=== PATIENT | male | born 1945 | race Caucasian/White ===

== ENCOUNTER → 2016-12-19 | Outpatient (REF) | payer MEDICARE ==
[~2016-12-19] MED LIST: ALEV220T26 PO; ASPI1TAB PO; ASPI81TA21 PO; BAYE325T12 PO; CARV3.12 PO; CARV6.25 PO; CIAL5TAB PO; CLOP75TA2 PO; MAGO400T PO; OMEP40CA2 PO; PERC5TAB6 PO; PLAV75TA38 PO; PRIL1CAP PO; SUCR1TA PO; TUMS500C PO; TYLE1TAB5 PO; ZOCO10TA PO; ZOLP5TAB PO
== END ==
LOC: M LABDRWAD 12:04
PROVIDERS: ATTEND Urology
DX: C61 Malignant neoplasm of prostate (principal)

== ENCOUNTER → 2017-01-15 | Outpatient (REF) | payer MEDICARE ==
[~2017-01-15] MED LIST changes: +PERC5TAB12 PO; -PERC5TAB6 PO; +PLAV1TAB2 PO; -PLAV75TA38 PO
[2017-01-15 12:35] LABS: MEAN CORPUSCULAR HEMOGLOBIN 28.4 pg (27.0-33.0); MEAN CORPUSCULAR HGB CONC 32.8 g/dl (32.0-36.5); MEAN CORPUSCULAR VOLUME 86.7 fl (80.0-96.0); RED CELL DISTRIBUTION WIDTH 14.8 % (11.5-14.5); WHITE BLOOD COUNT 3.3 K/mm3 (4.0-10.0)
[2017-01-15 12:53] LABS: ALBUMIN 3.5 GM/DL (3.2-5.2); ALBUMIN/GLOBULIN RATIO 1.06 (1.00-1.93); ALKALINE PHOSPHATASE 104 U/L (45-117); ALT/SGPT 18 U/L (12-78); ANION GAP 6 MEQ/L (8-16); AST/SGOT 16 U/L (15-37); BILIRUBIN,TOTAL 0.3 MG/DL (0.2-1.0); BLOOD UREA NITROGEN 24 MG/DL (7-18); CALCIUM LEVEL 8.4 MG/DL (8.8-10.2); CARBON DIOXIDE LEVEL 28 MEQ/L (21-32); CHLORIDE LEVEL 109 MEQ/L (98-107); CHOLESTEROL LEVEL 120 MG/DL (<200); CREATININE FOR GFR 0.97 MG/DL (0.70-1.30); GLOMERULAR FILTRATION RATE > 60.0 (>42); GLUCOSE, FASTING 102 MG/DL (83-110); POTASSIUM SERUM 4.1 MEQ/L (3.5-5.1); SODIUM LEVEL 143 MEQ/L (136-145); TOTAL PROTEIN 6.8 GM/DL (6.4-8.2); TRIGLYCERIDES LEVEL 90 MG/DL (<150)
== END ==
LOC: M SFHCPLAZ 08:35
PROVIDERS: ATTEND Family Medicine
DX: K22.70 Barrett's esophagus without dysplasia (principal); I48.0 Paroxysmal atrial fibrillation; E74.9 Disorder of carbohydrate metabolism, unspecified; E78.2 Mixed hyperlipidemia; C61 Malignant neoplasm of prostate; Z79.899 Other long term (current) drug therapy

== ENCOUNTER → 2017-04-16 | Outpatient (REF) | payer MEDICARE | LOC: M LAB REF 10:20 | PROVIDERS: ATTEND Radiology Therapeutic Radiology | DX: C61 Malignant neoplasm of prostate (principal) ==

== ENCOUNTER → 2017-12-16 | Outpatient (REF) | payer MEDICARE ==
[2017-12-16 12:27] LABS: CREATININE FOR GFR 1.08 MG/DL (0.70-1.30); GLOMERULAR FILTRATION RATE > 60.0 (>42)
[2017-12-16 12:27] LABS: BLOOD UREA NITROGEN 22 MG/DL (7-18)
== END ==
LOC: M LABDRAW1 11:42
DX: M25.511 Pain in right shoulder (principal)
CPT/HCPCS: 82565

== ENCOUNTER → 2017-12-22 | Outpatient (REF) | payer MEDICARE ==
[2017-12-23 13:02] LABS: HEMATOCRIT 37.5 % (42.0-52.0); HEMOGLOBIN 11.9 g/dl (13.5-17.5); MEAN CORPUSCULAR HGB CONC 31.7 g/dl (32.0-36.5); MEAN CORPUSCULAR VOLUME 85.2 fl (80.0-96.0); PLATELET COUNT, AUTOMATED 214 10^3/uL (150-450); RED CELL DISTRIBUTION WIDTH 15.1 % (11.5-14.5); WHITE BLOOD COUNT 3.6 10^3/uL (4.0-10.0)
[2017-12-23 13:13] LABS: ALBUMIN 3.5 GM/DL (3.2-5.2); ALBUMIN/GLOBULIN RATIO 1.03 (1.00-1.93); ALKALINE PHOSPHATASE 91 U/L (45-117); ALT/SGPT 19 U/L (12-78); ANION GAP 11 MEQ/L (8-16); AST/SGOT 17 U/L (7-37); BILIRUBIN,TOTAL 0.4 MG/DL (0.2-1.0); BLOOD UREA NITROGEN 20 MG/DL (7-18); CALCIUM LEVEL 8.2 MG/DL (8.8-10.2); CARBON DIOXIDE LEVEL 23 MEQ/L (21-32); CHLORIDE LEVEL 107 MEQ/L (98-107); CHOLESTEROL LEVEL 109 MG/DL (<200); CHOLESTEROL RISK RATIO 3.892 (<5); CREATININE FOR GFR 1.08 MG/DL (0.70-1.30); GLOMERULAR FILTRATION RATE > 60.0 (>42); GLUCOSE, FASTING 105 MG/DL (70-100); HDL CHOLESTEROL 28 MG/DL (>40); LDL CHOLESTEROL 66.6 MG/DL (<100); NON-HDL-C 81 MG/DL; POTASSIUM SERUM 4.3 MEQ/L (3.5-5.1); PROSTATIC SPECIFIC AG MONITOR < 0.01 NG/ML (< 4.0); SODIUM LEVEL 141 MEQ/L (136-145); TOTAL PROTEIN 6.9 GM/DL (6.4-8.2); TRIGLYCERIDES LEVEL 72 MG/DL (<150)
== END ==
LOC: M SFHCADAM 09:29
DX: K22.70 Barrett's esophagus without dysplasia (principal); E78.2 Mixed hyperlipidemia; C61 Malignant neoplasm of prostate
CPT/HCPCS: 80053

== ENCOUNTER → 2017-12-30 | Outpatient (REF) | payer MEDICARE ==
[2017-12-30 12:57] LABS: BASO % 0.8 % (0.0-1.0); EOS # 0.1 10^3/uL (0.0-0.50); EOS % 3.8 % (0.0-3.0); HEMATOCRIT 39.1 % (42.0-52.0); HEMOGLOBIN 12.2 g/dl (13.5-17.5); LYMPH % 27.2 % (24.0-44.0); MEAN CORPUSCULAR HEMOGLOBIN 26.6 pg (27.0-33.0); MEAN CORPUSCULAR HGB CONC 31.2 g/dl (32.0-36.5); MEAN CORPUSCULAR VOLUME 85.4 fl (80.0-96.0); MONO # 0.3 10^3/uL (0.0-0.8); MONO % 7.5 % (0.0-5.0); NEUTROPHILS # 2.3 10^3/uL (1.8-7.7); NEUTROPHILS % 60.7 % (36.0-66.0); PLATELET COUNT, AUTOMATED 215 10^3/uL (150-450); RED BLOOD COUNT 4.58 10^6/uL (4.30-6.10); RED CELL DISTRIBUTION WIDTH 15.5 % (11.5-14.5); RETIC HEMOGLOBIN EQUIVALENT 30.3 pg (24-36); RETICULOCYTE # 41.2 10^9/L (17-77); RETICULOCYTE % 0.9 % (0.5-1.5); WHITE BLOOD COUNT 3.7 10^3/uL (4.0-10.0)
[2017-12-30 13:29] LABS: VITAMIN B12 LEVEL 297 PG/ML (247-911)
[2017-12-30 13:30] LABS: FOLATE 7.4 NG/ML (>5.4)
[2017-12-30 13:37] LABS: FERRITIN 9 NG/ML (26-388); FREE T4 0.98 NG/DL (0.76-1.46); IRON (FE) 53 UG/DL (65-175); PERCENT SATURATION 13.7 % (19.7-50.0); TOTAL IRON BINDING CAPACITY 386 UG/DL (250-450)
[2017-12-30 13:37] LABS: MAGNESIUM LEVEL 2.2 MG/DL (1.8-2.4)
[2017-12-30 13:38] LABS: ESTIMATED AVERAGE GLUCOSE 137 MG/DL (60-110); HEMOGLOBIN A1c 6.4 %
[2018-01-01 00:10] LABS: FREE LAMBDA LIGHT CHAINS SERUM 15.1 mg/L (5.7-26.3); KAPPA/LAMBDA RATIO SERUM 1.06 (0.26-1.65)
== END ==
LOC: M SFHCADAM 09:16
DX: R53.83 Other fatigue (principal); D64.9 Anemia, unspecified; E74.9 Disorder of carbohydrate metabolism, unspecified; I25.10 Atherosclerotic heart disease of native coronary artery without angina pectoris; C61 Malignant neoplasm of prostate; I48.0 Paroxysmal atrial fibrillation; E78.2 Mixed hyperlipidemia; K22.70 Barrett's esophagus without dysplasia
CPT/HCPCS: 82746

== ENCOUNTER 2018-02-08 08:23 | Day surgery (SDC) | payer MEDICARE ==
[2018-02-08] MEDS: NS 1,000 ML IV (08:56)
[2018-02-08] MEDS ORDERED: PROPOFOL 500 MG/50 ML VIAL As Ordered (10:07)
[2018-02-08] MEDS ORDERED: LIDOCAINE 2% INJ 100 MG/5 ML SDV (FOR ANES.) As Ordered (10:07)
== END 2018-02-08 10:57 | disposition home or self-care (01) ==
LOC: M OPP 08:23
DX: D50.9 Iron deficiency anemia, unspecified (principal); D12.0 Benign neoplasm of cecum; K64.0 First degree hemorrhoids; K57.30 Diverticulosis of large intestine without perforation or abscess without bleeding; Z98.0 Intestinal bypass and anastomosis status; R12 Heartburn; K22.8 Other specified diseases of esophagus; K44.9 Diaphragmatic hernia without obstruction or gangrene; K22.70 Barrett's esophagus without dysplasia; I10 Essential (primary) hypertension; I25.10 Atherosclerotic heart disease of native coronary artery without angina pectoris; Z95.5 Presence of coronary angioplasty implant and graft; Z86.79 Personal history of other diseases of the circulatory system; K92.2 Gastrointestinal hemorrhage, unspecified; K27.9 Peptic ulcer, site unspecified, unspecified as acute or chronic, without hemorrhage or perforation; M19.90 Unspecified osteoarthritis, unspecified site; Z87.09 Personal history of other diseases of the respiratory system; Z87.442 Personal history of urinary calculi; Z85.46 Personal history of malignant neoplasm of prostate; Z92.3 Personal history of irradiation; Z87.891 Personal history of nicotine dependence; Z88.5 Allergy status to narcotic agent; Z79.02 Long term (current) use of antithrombotics/antiplatelets; Z79.899 Other long term (current) drug therapy
CPT/HCPCS: 45380

== ENCOUNTER → 2018-02-18 | Outpatient (REF) | payer MEDICARE ==
[2018-02-18 12:27] LABS: HEMATOCRIT 40.4 % (42.0-52.0); HEMOGLOBIN 13.2 g/dl (13.5-17.5); MEAN CORPUSCULAR HEMOGLOBIN 28.3 pg (27.0-33.0); MEAN CORPUSCULAR HGB CONC 32.7 g/dl (32.0-36.5); MEAN CORPUSCULAR VOLUME 86.7 fl (80.0-96.0); PLATELET COUNT, AUTOMATED 210 10^3/uL (150-450); RED BLOOD COUNT 4.66 10^6/uL (4.30-6.10); RED CELL DISTRIBUTION WIDTH 16.1 % (11.5-14.5); RETIC HEMOGLOBIN EQUIVALENT 33.7 pg (24-36); RETICULOCYTE # 56.4 10^9/L (17-77); RETICULOCYTE % 1.2 % (0.5-1.5); WHITE BLOOD COUNT 3.1 10^3/uL (4.0-10.0)
[2018-02-18 12:45] LABS: VITAMIN B12 LEVEL 602 PG/ML (247-911)
[2018-02-18 13:17] LABS: ANION GAP 8 MEQ/L (8-16); BLOOD UREA NITROGEN 17 MG/DL (7-18); CALCIUM LEVEL 8.3 MG/DL (8.8-10.2); CARBON DIOXIDE LEVEL 25 MEQ/L (21-32); CHLORIDE LEVEL 110 MEQ/L (98-107); CREATININE FOR GFR 1.09 MG/DL (0.70-1.30); FERRITIN 22 NG/ML (26-388); GLOMERULAR FILTRATION RATE > 60.0 (>42); GLUCOSE, FASTING 133 MG/DL (70-100); IRON (FE) 58 UG/DL (65-175); PERCENT SATURATION 19.7 % (19.7-50.0); SODIUM LEVEL 143 MEQ/L (136-145); TOTAL IRON BINDING CAPACITY 294 UG/DL (250-450)
== END ==
LOC: M SFHCADAM 09:45
DX: D64.9 Anemia, unspecified (principal)
CPT/HCPCS: 83550

== ENCOUNTER → 2018-02-19 | Outpatient (CLI) | payer MEDICARE | LOC: M PLARAD 14:21 | DX: M25.511 Pain in right shoulder (principal) | CPT/HCPCS: 71552 ==

== ENCOUNTER → 2018-03-29 | Outpatient (REF) | payer MEDICARE ==
[2018-03-29 15:48] LABS: COLLAGEN EPINEPHRINE 112 SECONDS (74-162)
== END ==
LOC: M LABDRAW1 14:10
DX: H02.423 Myogenic ptosis of bilateral eyelids (principal)
CPT/HCPCS: 36415

== ENCOUNTER → 2018-06-30 | Outpatient (REF) | payer MEDICARE ==
[~2018-06-30] MED LIST changes: +IRON325T7 PO; +VITA100072 PO
[2018-06-30 12:34] LABS: HEMATOCRIT 43.8 % (42.0-52.0); HEMOGLOBIN 13.9 g/dl (13.5-17.5); MEAN CORPUSCULAR HGB CONC 31.7 g/dl (32.0-36.5); MEAN CORPUSCULAR VOLUME 91.3 fl (80.0-96.0); PLATELET COUNT, AUTOMATED 191 10^3/uL (150-450); WHITE BLOOD COUNT 3.9 10^3/uL (4.0-10.0)
[2018-06-30 12:44] LABS: ALBUMIN 3.3 GM/DL (3.2-5.2); ALT/SGPT 22 U/L (12-78); BILIRUBIN,TOTAL 0.5 MG/DL (0.2-1.0); BLOOD UREA NITROGEN 18 MG/DL (7-18); CALCIUM LEVEL 8.1 MG/DL (8.8-10.2); CARBON DIOXIDE LEVEL 28 MEQ/L (21-32); CHLORIDE LEVEL 107 MEQ/L (98-107); CHOLESTEROL LEVEL 120 MG/DL (<200); CHOLESTEROL RISK RATIO 4.285 (<5); CREATININE FOR GFR 1.06 MG/DL (0.70-1.30); FERRITIN 15 NG/ML (26-388); FREE T4 1.03 NG/DL (0.76-1.46); GLOMERULAR FILTRATION RATE > 60.0 (>42); GLUCOSE, FASTING 102 MG/DL (70-100); HDL CHOLESTEROL 28 MG/DL (>40); IRON (FE) 86 UG/DL (65-175); LDL CHOLESTEROL 75 MG/DL (<100); NON-HDL-C 92 MG/DL; PERCENT SATURATION 28.5 % (19.7-50.0); POTASSIUM SERUM 4.2 MEQ/L (3.5-5.1); SODIUM LEVEL 142 MEQ/L (136-145); TOTAL IRON BINDING CAPACITY 302 UG/DL (250-450); TOTAL PROTEIN 6.7 GM/DL (6.4-8.2); TRIGLYCERIDES LEVEL 83 MG/DL (<150)
[2018-06-30 13:59] LABS: HEMOGLOBIN A1c 5.8 %
== END ==
LOC: M SFHCADAM 09:37
PROVIDERS: ATTEND Family Medicine
DX: K22.70 Barrett's esophagus without dysplasia (principal); D64.9 Anemia, unspecified; I48.0 Paroxysmal atrial fibrillation; E74.9 Disorder of carbohydrate metabolism, unspecified; E78.2 Mixed hyperlipidemia

== ENCOUNTER → 2018-12-07 | Outpatient (REF) | payer MEDICARE ==
[~2018-12-07] MED LIST changes: -ASPI1TAB PO; +ASPI81TA26 PO; +FERR325T82 PO; -IRON325T7 PO; +VITA100018 PO; -VITA100072 PO
[2018-12-07 20:14] LABS: HEMATOCRIT 44.4 % (42.0-52.0); MEAN CORPUSCULAR HEMOGLOBIN 28.9 pg (27.0-33.0); MEAN CORPUSCULAR HGB CONC 31.5 g/dl (32.0-36.5); MEAN CORPUSCULAR VOLUME 91.5 fl (80.0-96.0); PLATELET COUNT, AUTOMATED 194 10^3/uL (150-450); RED BLOOD COUNT 4.85 10^6/uL (4.30-6.10); WHITE BLOOD COUNT 5.1 10^3/uL (4.0-10.0)
[2018-12-07 20:23] LABS: CALCIUM LEVEL 8.8 MG/DL (8.8-10.2); CREATININE FOR GFR 1.39 MG/DL (0.70-1.30); GLOMERULAR FILTRATION RATE 53.5 (>42); PERCENT SATURATION 27.1 % (19.7-50.0); POTASSIUM SERUM 4.8 MEQ/L (3.5-5.1)
== END ==
LOC: M SFHCADAM 14:26
PROVIDERS: ATTEND Family Medicine
DX: K22.70 Barrett's esophagus without dysplasia (principal); Z86.39 Personal history of other endocrine, nutritional and metabolic disease; E74.9 Disorder of carbohydrate metabolism, unspecified

== ENCOUNTER → 2019-01-07 | Outpatient (REF) | payer MEDICARE ==
[2019-01-07 14:31] LABS: HEMATOCRIT 44.6 % (42.0-52.0); HEMOGLOBIN 14.2 g/dl (13.5-17.5); MEAN CORPUSCULAR HEMOGLOBIN 29.5 pg (27.0-33.0); MEAN CORPUSCULAR HGB CONC 31.8 g/dl (32.0-36.5); MEAN CORPUSCULAR VOLUME 92.5 fl (80.0-96.0); PLATELET COUNT, AUTOMATED 195 10^3/uL (150-450); RED BLOOD COUNT 4.82 10^6/uL (4.30-6.10); WHITE BLOOD COUNT 3.7 10^3/uL (4.0-10.0)
[2019-01-07 14:42] LABS: ALBUMIN 3.6 GM/DL (3.2-5.2); ALT/SGPT 29 U/L (12-78); BILIRUBIN,TOTAL 0.5 MG/DL (0.2-1.0); BLOOD UREA NITROGEN 24 MG/DL (7-18); CALCIUM LEVEL 8.2 MG/DL (8.8-10.2); CARBON DIOXIDE LEVEL 27 MEQ/L (21-32); CHLORIDE LEVEL 109 MEQ/L (98-107); CHOLESTEROL LEVEL 100 MG/DL (<200); FERRITIN 49 NG/ML (26-388); GLOMERULAR FILTRATION RATE > 60.0 (>42); GLUCOSE, FASTING 96 MG/DL (70-100); HDL CHOLESTEROL 25 MG/DL (>40); IRON (FE) 95 UG/DL (65-175); LDL CHOLESTEROL 60 MG/DL (<100); NON-HDL-C 75 MG/DL; PERCENT SATURATION 31.8 % (19.7-50.0); POTASSIUM SERUM 4.3 MEQ/L (3.5-5.1); SODIUM LEVEL 141 MEQ/L (136-145); TOTAL IRON BINDING CAPACITY 299 UG/DL (250-450); TOTAL PROTEIN 7.2 GM/DL (6.4-8.2); TRIGLYCERIDES LEVEL 75 MG/DL (<150)
== END ==
LOC: M SFHCADAM 09:18
PROVIDERS: ATTEND Family Medicine
DX: K22.70 Barrett's esophagus without dysplasia (principal); Z86.2 Personal history of diseases of the blood and blood-forming organs and certain disorders involving the immune mechanism; D64.9 Anemia, unspecified; N17.9 Acute kidney failure, unspecified; I25.10 Atherosclerotic heart disease of native coronary artery without angina pectoris

== ENCOUNTER → 2019-01-12 | Outpatient (REF) | payer MEDICARE ==
[2019-01-12 13:45] LABS: MALB URINE SIEMENS 15.5 MG/L; MAU/CREAT RATIO 5.5 MCG/MG (0.0-30.0)
== END ==
LOC: M SFHCADAM 12:06
PROVIDERS: ATTEND Family Medicine
DX: N17.9 Acute kidney failure, unspecified (principal)

== ENCOUNTER → 2019-01-18 | Outpatient (CLI) | payer MEDICARE ==
[~2019-01-18] MED LIST changes: +ISOVUE-370 76% 100ML VIAL (Q9967) As Ordered ONE
--- NOTE | 2019-01-18 15:20 | REP ---
CT PULMONARY ANGIOGRAM: WITH IV CONTRAST. HISTORY: Chronic coughing. Dyspnea on exertion. Comparison is made with CT study of the chest without contrast done June 07, 2012. The patient gives a history of prostate malignancy. CONTRAST DOSE: 75 mL of Isovue [address] TECHNIQUE: Helical scanning is acquired and overlapping 1.5 mm and contiguous 3 mm axial images are reformatted. In addition, maximum intensity projection and multiplanar re-formation images are generated in sagittal and coronal imaging projections. CT PULMONARY ANGIOGRAPHIC FINDINGS: There is good opacification of the pulmonary arterial tree, and there is no CT evidence of pulmonary embolus. The thoracic aorta is ectatic and somewhat tortuous but not aneurysmal. There is no evidence of dissection. No pleural or pericardial effusion is appreciated. No hilar or mediastinal mass or adenopathy is observed. Maximum intensity projection images show no additional abnormality. No infiltrate or pulmonary nodule is appreciated. No bony destructive lesion is appreciated. There is no visible endobronchial disease. No adrenal abnormality is observed on either side. There is a cyst centrally located in the left lobe of the liver measuring 1.6 cm in greatest diameter. This is unchanged from the 2012 study. There is evidence of a 3 mm calculus in the upper pole of the left kidney. IMPRESSION: No CT evidence of pulmonary embolism. No active cardiopulmonary disease. Small hepatic cyst. Probable 3 mm calculus, left kidney. Tortuous and mildly ectatic thoracic aorta. Electronically Signed by Rubén De Los Santos MD 01/18/2019 04:58 P
== END ==
LOC: M RAD 14:08
PROVIDERS: ATTEND Family Medicine
DX: K83.5 Biliary cyst (principal); R05 Cough; R06.09 Other forms of dyspnea
CPT/HCPCS: 36415; 71046; 71275; 80053; 85027; 86171; 86713; 86738; 87486; 87581; 87633; 87798; G0463; Q9967

== ENCOUNTER → 2019-01-18 | Outpatient (CLI) | payer MEDICARE ==
[~2019-01-18] MED LIST changes: -ISOVUE-370 76% 100ML VIAL (Q9967) As Ordered ONE
[2019-01-18 10:14] LABS: HEMATOCRIT 42.3 % (42.0-52.0); MEAN CORPUSCULAR HEMOGLOBIN 29.7 pg (27.0-33.0); MEAN CORPUSCULAR HGB CONC 33.1 g/dl (32.0-36.5); MEAN CORPUSCULAR VOLUME 89.6 fl (80.0-96.0); PLATELET COUNT, AUTOMATED 197 10^3/uL (150-450); RED BLOOD COUNT 4.72 10^6/uL (4.30-6.10); WHITE BLOOD COUNT 4.1 10^3/uL (4.0-10.0)
[2019-01-18 10:42] LABS: ALBUMIN 3.6 GM/DL (3.2-5.2); ALT/SGPT 22 U/L (12-78); BILIRUBIN,TOTAL 0.5 MG/DL (0.2-1.0); BLOOD UREA NITROGEN 25 MG/DL (7-18); CARBON DIOXIDE LEVEL 27 MEQ/L (21-32); CHLORIDE LEVEL 112 MEQ/L (98-107); CREATININE FOR GFR 1.01 MG/DL (0.70-1.30); GLOMERULAR FILTRATION RATE > 60.0 (>42); GLUCOSE, FASTING 95 MG/DL (70-100); POTASSIUM SERUM 4.2 MEQ/L (3.5-5.1); SODIUM LEVEL 137 MEQ/L (136-145); TOTAL PROTEIN 7.2 GM/DL (6.4-8.2)
== END ==
LOC: M LAB 09:43
PROVIDERS: ATTEND Family Medicine
DX: R05 Cough (principal)

== ENCOUNTER → 2019-01-18 | Outpatient (CLI) | payer MEDICARE ==
--- NOTE | 2019-01-18 11:40 | REP ---
CHEST X-RAY: Two views. HISTORY: Chronic cough. COMPARISON STUDY: February 21, 2016. FINDINGS: The lungs are symmetrically aerated and clear. Pleural angles are sharp. Heart is not enlarged. The aorta is tortuous. Pulmonary vasculature is not increased. No significant bony abnormality is seen. IMPRESSION: No active disease. Electronically Signed by Rubén De Los Santos MD 01/18/2019 04:53 P
== END ==
LOC: M ADAMS 08:39
PROVIDERS: ATTEND Family Medicine
DX: R05 Cough (principal)

== ENCOUNTER → 2019-01-26 | Outpatient (REF) | payer MEDICARE | LOC: M SFHCADAM 10:31 | PROVIDERS: ATTEND Family Medicine | DX: R68.89 Other general symptoms and signs (principal) ==

== ENCOUNTER → 2019-06-27 | Outpatient (REF) | payer MEDICARE ==
[~2019-06-27] MED LIST changes: -OMEP40CA2 PO; +OMEP40CA97 PO
== END ==
LOC: M SFHCADAM 11:08
PROVIDERS: ATTEND Family Medicine
DX: I25.10 Atherosclerotic heart disease of native coronary artery without angina pectoris (principal); E78.2 Mixed hyperlipidemia; E74.9 Disorder of carbohydrate metabolism, unspecified; D64.9 Anemia, unspecified; Z86.39 Personal history of other endocrine, nutritional and metabolic disease

== ENCOUNTER → 2019-07-01 | Outpatient (REF) | payer MEDICARE ==
[2019-07-01 13:18] LABS: HEMATOCRIT 45.7 % (42.0-52.0); HEMOGLOBIN 14.7 g/dl (13.5-17.5); MEAN CORPUSCULAR HEMOGLOBIN 29.4 pg (27.0-33.0); MEAN CORPUSCULAR HGB CONC 32.2 g/dl (32.0-36.5); MEAN CORPUSCULAR VOLUME 91.4 fl (80.0-96.0); PLATELET COUNT, AUTOMATED 190 10^3/uL (150-450); WHITE BLOOD COUNT 4.9 10^3/uL (4.0-10.0)
[2019-07-01 13:35] LABS: HEMOGLOBIN A1c 6.2 %
[2019-07-01 14:06] LABS: ALBUMIN 3.6 GM/DL (3.2-5.2); ALT/SGPT 23 U/L (12-78); BILIRUBIN,TOTAL 0.6 MG/DL (0.2-1.0); BLOOD UREA NITROGEN 25 MG/DL (7-18); CALCIUM LEVEL 8.5 MG/DL (8.8-10.2); CARBON DIOXIDE LEVEL 29 MEQ/L (21-32); CHLORIDE LEVEL 106 MEQ/L (98-107); CHOLESTEROL LEVEL 124 MG/DL (<200); FERRITIN 65 NG/ML (26-388); GLOMERULAR FILTRATION RATE > 60.0 (>42); GLUCOSE, FASTING 88 MG/DL (70-100); HDL CHOLESTEROL 25 MG/DL (>40); IRON (FE) 92 UG/DL (65-175); LDL CHOLESTEROL 80 MG/DL (<100); NON-HDL-C 99 MG/DL; PERCENT SATURATION 32.2 % (19.7-50.0); POTASSIUM SERUM 4.4 MEQ/L (3.5-5.1); SODIUM LEVEL 141 MEQ/L (136-145); TOTAL IRON BINDING CAPACITY 286 UG/DL (250-450); TOTAL PROTEIN 7.1 GM/DL (6.4-8.2); TRIGLYCERIDES LEVEL 96 MG/DL (<150)
== END ==
LOC: M SFHCADAM 09:49
PROVIDERS: ATTEND Family Medicine
DX: I25.10 Atherosclerotic heart disease of native coronary artery without angina pectoris (principal); E78.2 Mixed hyperlipidemia; E74.9 Disorder of carbohydrate metabolism, unspecified; D64.9 Anemia, unspecified; Z86.39 Personal history of other endocrine, nutritional and metabolic disease

== ENCOUNTER → 2019-12-30 | Outpatient (REF) | payer MEDICARE ==
[2019-12-30 16:52] LABS: APPEARANCE, URINE CLEAR (CLEAR); BACTERIA, URINE AUTO NEGATIVE (NEGATIVE); BILIRUBIN, URINE AUTO NEGATIVE (NEGATIVE); BLOOD, URINE BLOOD NEGATIVE (NEGATIVE); COLOR, URINE YELLOW (YELLOW); GLUCOSE, URINE (UA) AUTO NEGATIVE (NEGATIVE); KETONE, URINE AUTO NEGATIVE (NEGATIVE); LEUKOCYTE ESTERASE, URINE AUTO NEGATIVE (NEGATIVE); MUCUS, URINE SMALL (NEGATIVE); NITRITE, URINE AUTO NEGATIVE (NEGATIVE); PROTEIN, URINE AUTO NEGATIVE (NEGATIVE); RBC, URINE AUTO 1 /HPF (0-3); SPECIFIC GRAVITY URINE AUTO 1.024 (1.002-1.035); SQUAMOUS EPITHELIAL CELL UR AU 0 /HPF (0-6); UROBILINOGEN, URINE AUTO 0.2 mg/dL (0.0-2.0); WBC, URINE AUTO 0 /HPF (0-3)
[2019-12-30 16:56] LABS: ALBUMIN 3.7 GM/DL (3.2-5.2); BILIRUBIN,TOTAL 0.6 MG/DL (0.2-1.0); CALCIUM LEVEL 8.4 MG/DL (8.8-10.2); CHOLESTEROL RISK RATIO 4.23 (<5); CREATININE FOR GFR 1.37 MG/DL (0.70-1.30); GLOMERULAR FILTRATION RATE 54.2 (>42); PERCENT SATURATION 40.4 % (19.7-50.0); POTASSIUM SERUM 4.6 MEQ/L (3.5-5.1); TOTAL PROTEIN 7.1 GM/DL (6.4-8.2)
[2019-12-30 16:57] LABS: HEMATOCRIT 43.4 % (42.0-52.0); HEMOGLOBIN 14.3 g/dl (13.5-17.5); MEAN CORPUSCULAR HEMOGLOBIN 29.9 pg (27.0-33.0); MEAN CORPUSCULAR HGB CONC 32.9 g/dl (32.0-36.5); MEAN CORPUSCULAR VOLUME 90.6 fl (80.0-96.0); PLATELET COUNT, AUTOMATED 198 10^3/uL (150-450); RED BLOOD COUNT 4.79 10^6/uL (4.30-6.10); WHITE BLOOD COUNT 5.3 10^3/uL (4.0-10.0)
[2019-12-30 18:13] LABS: HEMOGLOBIN A1c 6.3 %
== END ==
LOC: M SFHCADAM 14:35
PROVIDERS: ATTEND Family Medicine
DX: R31.0 Gross hematuria (principal); E74.9 Disorder of carbohydrate metabolism, unspecified; I25.10 Atherosclerotic heart disease of native coronary artery without angina pectoris; Z86.2 Personal history of diseases of the blood and blood-forming organs and certain disorders involving the immune mechanism

== ENCOUNTER → 2020-03-01 | Outpatient (REF) | payer MEDICARE ==
[2020-03-01 15:23] LABS: APPEARANCE, URINE CLEAR (CLEAR); BACTERIA, URINE AUTO NEGATIVE (NEGATIVE); BILIRUBIN, URINE AUTO NEGATIVE (NEGATIVE); BLOOD, URINE BLOOD NEGATIVE (NEGATIVE); COLOR, URINE YELLOW (YELLOW); GLUCOSE, URINE (UA) AUTO NEGATIVE (NEGATIVE); KETONE, URINE AUTO NEGATIVE (NEGATIVE); LEUKOCYTE ESTERASE, URINE AUTO NEGATIVE (NEGATIVE); MUCUS, URINE SMALL (NEGATIVE); NITRITE, URINE AUTO NEGATIVE (NEGATIVE); PROTEIN, URINE AUTO NEGATIVE (NEGATIVE); RBC, URINE AUTO 0 /HPF (0-3); SPECIFIC GRAVITY URINE AUTO 1.024 (1.002-1.035); SQUAMOUS EPITHELIAL CELL UR AU 0 /HPF (0-6); UROBILINOGEN, URINE AUTO 0.2 mg/dL (0.0-2.0); WBC, URINE AUTO 0 /HPF (0-3)
[2020-03-01 15:30] LABS: BASO # 0.1 10^3/uL (0.0-0.2); BASO % 1.2 % (0.0-1.0); EOS # 0.1 10^3/uL (0.0-0.5); EOS % 2.2 % (0.0-3.0); HEMATOCRIT 44.7 % (42.0-52.0); HEMOGLOBIN 14.3 g/dl (13.5-17.5); LYMPH # 1.3 10^3/uL (1.5-5.0); LYMPH % 31.2 % (24.0-44.0); MEAN CORPUSCULAR HEMOGLOBIN 29.1 pg (27.0-33.0); MONO # 0.3 10^3/uL (0.0-0.8); MONO % 7.2 % (0.0-5.0); NEUTROPHILS # 2.4 10^3/uL (1.5-8.5); PLATELET COUNT, AUTOMATED 194 10^3/uL (150-450); RED BLOOD COUNT 4.91 10^6/uL (4.30-6.10); WHITE BLOOD COUNT 4.2 10^3/uL (4.0-10.0)
[2020-03-01 15:47] LABS: BLOOD UREA NITROGEN 22 MG/DL (7-18); CALCIUM LEVEL 8.7 MG/DL (8.8-10.2); CARBON DIOXIDE LEVEL 29 MEQ/L (21-32); CHLORIDE LEVEL 110 MEQ/L (98-107); CREATININE FOR GFR 1.16 MG/DL (0.70-1.30); GLOMERULAR FILTRATION RATE > 60.0 (>42); GLUCOSE, FASTING 109 MG/DL (70-100); POTASSIUM SERUM 4.4 MEQ/L (3.5-5.1); SODIUM LEVEL 141 MEQ/L (136-145)
== END ==
LOC: M SFHCADAM 13:32
PROVIDERS: ATTEND Urology
DX: N39.3 Stress incontinence (female) (male) (principal); N36.42 Intrinsic sphincter deficiency (ISD); Z85.46 Personal history of malignant neoplasm of prostate

== ENCOUNTER 2021-01-16 20:54 | Observation (INO) | payer MEDICARE ==
[~2021-01-16] VITALS: Ht 170.2 cm; Wt 84.3 kg
[~2021-01-16 20:54] MED LIST changes: +OMEP40CA4 PO; -OMEP40CA97 PO
[2021-01-16 21:39] LABS: BASO # 0.1 10^3/uL (0.0-0.2); BASO % 0.6 % (0.0-1.0); EOS # 0.1 10^3/uL (0.0-0.5); EOS % 1.3 % (0.0-3.0); LYMPH # 1.7 10^3/uL (1.5-5.0); LYMPH % 21.4 % (24.0-44.0); MEAN CORPUSCULAR HEMOGLOBIN 28.9 pg (27.0-33.0); MEAN CORPUSCULAR HGB CONC 32.6 g/dl (32.0-36.5); MEAN CORPUSCULAR VOLUME 88.6 fl (80.0-96.0); MONO # 0.5 10^3/uL (0.0-0.8); MONO % 6.6 % (2.0-8.0); NEUTROPHILS # 5.5 10^3/uL (1.5-8.5); NEUTROPHILS % 69.8 % (36.0-66.0); PLATELET COUNT, AUTOMATED 214 10^3/uL (150-450); RED BLOOD COUNT 5.19 10^6/uL (4.30-6.10); WHITE BLOOD COUNT 7.9 10^3/uL (4.0-10.0)
[2021-01-16 21:50] LABS: INR 0.96
[2021-01-16 21:51] LABS: PARTIAL THROMBOPLASTIN TIME 27.1 SECONDS (24.2-38.5)
[2021-01-16 22:13] LABS: ALBUMIN 3.9 GM/DL (3.2-5.2); ALT/SGPT 27 U/L (12-78); BILIRUBIN,DIRECT 0.2 MG/DL (0.0-0.2); BILIRUBIN,TOTAL 0.6 MG/DL (0.2-1.0); BLOOD UREA NITROGEN 20 MG/DL (7-18); CALCIUM LEVEL 8.9 MG/DL (8.8-10.2); CARBON DIOXIDE LEVEL 25 MEQ/L (21-32); CHLORIDE LEVEL 106 MEQ/L (98-107); CK-MB VALUE MASS 1.9 NG/ML (<3.6); CPK CREATINE PHOSPHOKINASE 167 U/L (39-308); CREATININE FOR GFR 1.24 MG/DL (0.70-1.30); GLOMERULAR FILTRATION RATE > 60.0 (>42); GLUCOSE, FASTING 108 MG/DL (70-100); LIPASE 83 U/L (73-393); MB/CK RELATIVE INDEX 1.14 (< OR =4); POTASSIUM SERUM 3.7 MEQ/L (3.5-5.1); SODIUM LEVEL 139 MEQ/L (136-145); TOTAL PROTEIN 7.4 GM/DL (6.4-8.2); TROPONIN I < 0.02 NG/ML (< 0.10)
[2021-01-16] MEDS ORDERED: ONDANSETRON 4MG/2ML VIAL IV ONE (22:15)
[2021-01-16] MEDS ORDERED: MORPHINE 4 MG/ML 1ML VIAL/SYRINGE (J2270) IV ONE (22:15)
--- NOTE | 2021-01-16 22:18 | REPVR ---
PROCEDURE INFORMATION: Exam: XR Chest Exam date and time: 01/16/2021 9:35 PM Age: 75 years old Clinical indication: Other: Cp; Additional info: Chest pain TECHNIQUE: Imaging protocol: XR of the chest. Views: 1 view. COMPARISON: DX CHEST 2 VIEW 01/18/2019 8:30 AM FINDINGS: Lungs: There is decreased inflation of the lungs. There are no interval infiltrates. Pleural spaces: Unremarkable. No pleural effusion. No pneumothorax. Heart/Mediastinum: The heart and mediastinum are unchanged. Bones/joints: Unremarkable. IMPRESSION: Essentially stable poor inspiratory chest since 01/18/2019. Electronically signed by: Khoa Tripp On 01/16/2021 22:17:43 PM
--- NOTE | 2021-01-16 23:06 | REPVR ---
PROCEDURE INFORMATION: Exam: CT Abdomen And Pelvis Without Contrast Exam date and time: 01/16/2021 10:29 PM Age: 75 years old Clinical indication: Abdominal pain; Generalized; Prior surgery; Additional info: Abd pain TECHNIQUE: Imaging protocol: Computed tomography of the abdomen and pelvis without contrast. Radiation optimization: All CT scans at this facility use at least one of these dose optimization techniques: automated exposure control; mA and/or kV adjustment per patient size (includes targeted exams where dose is matched to clinical indication); or iterative reconstruction. COMPARISON: CT ABD PELVIS WITH CONTRAST 02/21/2016 3:26 AM FINDINGS: Lungs: Minimal bilateral lower lobe dependent atelectasis. Liver: Central hepatic cyst measuring 14 mm with a Hounsfield measurement of 2. Gallbladder and bile ducts: Normal. No calcified stones. No ductal dilation. Pancreas: Normal. No ductal dilation. Spleen: Normal. No splenomegaly. Adrenal glands: Normal. No mass. Kidneys and ureters: Punctate nonobstructing left renal calculus. Stomach and bowel: Proximal rectal anastomotic ring is noted. There is minimal colonic diverticulosis without evidence of diverticulitis. Mild distention of small bowel segments with air-fluid levels and edema of some of the supplying mesentery with normal distal ileum consistent with a small bowel obstruction. There is a point of transition at the site of a small bowel anastomosis in the pelvis immediately above the urinary bladder and may reflect anastomotic stricture or impacted material within the anastomosis. Appendix: A normal appendix is seen. Intraperitoneal space: Trace perihepatic fluid and minimal free fluid in the pelvis. Vasculature: Coronary artery calcifications are present. There is mild calcification of the abdominal aorta. Lymph nodes: Unremarkable. No enlarged lymph nodes. Urinary bladder: Unremarkable as visualized. Reproductive: [place] in the right pelvis extending along the spermatic cord to apparent penile prosthesis or device. Bones/joints: Unremarkable. No acute fracture. Soft tissues: Unremarkable. IMPRESSION: 1. Small-bowel obstruction with the point of transition corresponding to a small bowel anastomosis in the low pelvis just above the urinary bladder and may reflect anastomotic stricture or impacted small bowel contents. This is a similar location and appearance to the prior study of 02/21/2016. 2. Status post sigmoid partial resection with rectosigmoid anastomosis. 3. Minimal peritoneal ascites which is likely reactive. 4. Punctate nonobstructing left renal calculus. 5. Minimal colonic diverticulosis without diverticulitis. Electronically signed by: Khoa Tripp On 01/16/2021 23:06:01 PM
[2021-01-16] MEDS ORDERED: MELA3TAB7 PO (23:34)
[2021-01-16] MEDS ORDERED: LISI10TA22 PO (23:34)
[2021-01-17] MEDS ORDERED: ONDANSETRON 4MG/2ML VIAL IV PRN (00:55)
[2021-01-17] MEDS ORDERED: MORPHINE 2 MG/ML 1ML VIAL (J2270) IV PRN ×2 (00:55)
[2021-01-17] MEDS: CARVedilol 3.125 MG TAB PO SCH ×2 (01:29→08:21)
[2021-01-17] MEDS: LR 1,000 ML IV SCH ×2 (01:30→08:21)
[2021-01-17] MEDS: OMEPRAZOLE 20 MG CAP PO SCH ×2 (01:30→08:21)
[2021-01-17 01:40] LABS: RSV AMPLIFICATION NEGATIVE (NEGATIVE)
[2021-01-17 06:00] VITALS: BP 136/67
[2021-01-17 08:21] VITALS: BP 136/67
--- NOTE | 2021-01-17 08:43 | IPNPDOC ---
Text Note Date of Service The patient was seen on 01/17/21. NOTE General surgery. Dr. Perry The patient is a 75-year-old male admitted with small bowel obstruction 01/16/2021. This morning, the patient states he is feeling much better. Abdominal distention has resolved. States he had a bowel movement and reports flatus, denies any nausea or vomiting. He has not used any medication for pain or nausea since last evening. Afebrile VSS MMM Lungs are clear to auscultation S1-S2 regular rate rhythm Abdomen is soft, nontender, nondistended, bowel sounds are present. No guarding or rebound. Extremities with no edema No new labs Assessment/plan SBO. Patient reports he is feeling much better this morning. He did have a bowel movement and reports flatus. He has not had any nausea or vomiting. The patient is reviewed with Dr. Perry. We will advance to clear liquids. IVF 100cc/hr Monitor. VS,Fishbone, I+O VS, Fishbone, I+O Laboratory Tests 01/16/21 21:16 Vital Signs Date Time Temp Pulse Resp B/P (MAP) Pulse Ox O2 Delivery O2 Flow Rate FiO2 01/17/21 08:21 68 136/67 01/17/21 06:00 98.1 16 97 Room Air I&O- Last 24 Hours up to 6 AM 01/17/21 06:00 Intake Total 112 ml Balance 112 ml Attending Note Attending Note Agree with Celia's note. Patient's symptoms have resolved rapidly as before. Will start clears and discharge patient later today if he tolerates. Celia Marshall Jan 17, 2021 08:43 Keny Perry Jan 24, 2021 10:27
[2021-01-17 10:00] VITALS: BP 128/62
--- NOTE | 2021-01-17 11:22 | HPE ---
HISTORY AND PHYSICAL DATE OF ADMISSION: 01/16/2021 The patient is being placed on observation status. DIAGNOSIS: Small-bowel obstruction. HISTORY OF PRESENT ILLNESS: The patient is a pleasant 75-year-old man, who presented to the emergency department complaining of approximately 8 to 10 hours of abdominal pain, which was severe and crampy with associated nausea and vomiting. The patient has a history of some significant prior abdominal surgery, as well as two episodes of transient small-bowel obstruction. In approximately 2013 or 2014, he had undergone a radical prostatectomy. He was initially followed without additional treatment; but after about two years, his PSA apparently eh and he received radiation therapy. He developed perforated diverticulitis and underwent a partial colectomy with anastomosis, but had a diverting ileostomy performed. Approximately four months later, his ileostomy was closed. During this same period, he also developed an upper gastrointestinal bleed and was found to have multiple gastric ulcers. He required multiple transfusions of blood. In November of 2015, he presented with a transient small-bowel obstruction, which resolved within approximately a day. Then in February of 2016, he presented again with a small-bowel obstruction. A CT scan at that time suggested some narrowing at his ileal anastomosis low in the pelvis on the right. This resolved again within approximately 24 hours and he has had no problems over the last five years or so until now. In the emergency department, he was found to have a non-distended abdomen, but some discomfort. He had laboratory studies obtained and then a CT scan of the abdomen and pelvis was performed. This showed some mildly to moderately dilated fluid-fill proximal small bowel, extending down to the level of the ileo-ileo stapled anastomosis down in the pelvis with a significant change in caliber. There was no evidence of free fluid or free air. By the time I saw the patient in the emergency department, he had 1 mg of morphine and had no pain and denied any further cramping. He no longer felt nauseous. The abdomen was soft and non-distended without any significant tenderness identified. The patient is now being placed on observation status in hopes that his bowel obstruction will resolve as rapidly as it has in the past. I will dictate the remainder of this note as a second separate dictation since I am being called away at this point and I will brain picker later today to complete the rest of his history and physical. PATRICK
--- NOTE | 2021-01-18 16:14 | ECGEPIP ---
[facility] - ED Test Date: 2021-01-16 Pat Name: ANA FINNEGAN Department: Room: [place] [address] Gender: Male Ip Counsel: krishna : 1945 Requested By: LORI Murphy Order Number: [id number] Reading MD: Isaias Boyd Measurements Intervals [place] Rate: 74 P: 29 MD: 222 QRS: -11 QRSD: 80 T: 29 QT: 388 QTc: 430 Interpretive Statements Sinus rhythm with 1st degree AV block Similar to tracing done 02-26-15 but with longer pr interval Electronically Signed on 01-18-2021 16:14:33 EDT by Isaias Boyd
--- NOTE | 2021-01-19 10:45 | HPE ---
HISTORY AND PHYSICAL DATE OF ADMISSION: 01/16/2021 The patient is being placed on observation status. DIAGNOSIS: Small-bowel obstruction. HISTORY OF PRESENT ILLNESS: The patient is a pleasant 75-year-old man, who presented to the emergency department complaining of approximately 8 to 10 hours of abdominal pain, which was severe and crampy with associated nausea and vomiting. The patient has a history of some significant prior abdominal surgery, as well as two episodes of transient small-bowel obstruction. In approximately 2013 or 2014, he had undergone a radical prostatectomy. He was initially followed without additional treatment; but after about two years, his PSA apparently eh and he received radiation therapy. He developed perforated diverticulitis and underwent a partial colectomy with anastomosis, but had a diverting ileostomy performed. Approximately four months later, his ileostomy was closed. During this same period, he also developed an upper gastrointestinal bleed and was found to have multiple gastric ulcers. He required multiple transfusions of blood. In November of 2015, he presented with a transient small-bowel obstruction, which resolved within approximately a day. Then in February of 2016, he presented again with a small-bowel obstruction. A CT scan at that time suggested some narrowing at his ileal anastomosis low in the pelvis on the right. This resolved again within approximately 24 hours and he has had no problems over the last five years or so until now. In the emergency department, he was found to have a non-distended abdomen, but some discomfort. He had laboratory studies obtained and then a CT scan of the abdomen and pelvis was performed. This showed some mildly to moderately dilated fluid-fill proximal small bowel, extending down to the level of the ileo-ileo stapled anastomosis down in the pelvis with a significant change in caliber. There was no evidence of free fluid or free air. By the time I saw the patient in the emergency department, he had 1 mg of morphine and had no pain and denied any further cramping. He no longer felt nauseous. The abdomen was soft and non-distended without any significant tenderness identified. The patient is now being placed on observation status in hopes that his bowel obstruction will resolve as rapidly as it has in the past. ALLERGIES: The patient reports an allergy to codeine. MEDICATIONS: Include: 1. simvastatin 10 mg by mouth daily 2. carvedilol 3.125 mg by mouth twice daily 3. omeprazole 40 mg by mouth twice daily 4. clopidogrel 75 mg by mouth daily at bedtime 5. lisinopril 10 mg by mouth daily at bedtime 6. melatonin 3 mg by mouth daily at bedtime SURGICAL HISTORY: Significant for his prostatectomy for prostate cancer. He had undergone a cardiac ablation for atrial fibrillation twice in the past. He had a coronary artery stent placed approximately 15 years ago and has had no subsequent problems. He had his diverticulitis with perforation requiring resection. He subsequently had his ileostomy reversed. He has had colonoscopy. 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 He reports excellent results with this device. MEDICAL HISTORY: Significant for his coronary artery disease treated with a stent. He had atrial fibrillation in the past treated by ablation. He has undergone placement of a stent for a renal stone. He has a history of high cholesterol. He remains on a proton pump inhibitor (PPI) for his past history of upper gastrointestinal (GI) bleeding from ulcers. FAMILY HISTORY: Noncontributory. Reportedly he is adopted and the history is otherwise unknown. SOCIAL HISTORY: He had smoked briefly in the past and drinks alcohol with beverages occasionally. He lives with is and apparently splits his time between [place] and [place]. REVIEW OF SYSTEMS: The patient has been doing quite well and remains quite physically active, particularly playing golf. He denies any chest pains or palpitations. He has had no shortness of breath, wheezing, cough or sputum production. He denies any recent evidence of gastrointestinal bleeding. He has had no abdominal pain. He denies any dysuria or hematuria. He denies any significant bone or joint problems and has no history of deep venous thrombosis (DVT) or pulmonary embolus. PHYSICAL EXAMINATION: On physical examination, at the time of my evaluation of the patient in the emergency department, revealed a pulse in the mid 70s and blood pressure of 167/87 and a room air pulse oximetry of 95%. He was lying quietly on the hospital stretcher. He is alert, oriented and cooperative. Skin is warm and dry. Sclerae anicteric. Mucous membranes are moist. Neck is supple without any cervical adenopathy. He has no supraclavicular adenopathy. Heart examination: Shows a regular rate and rhythm. The lungs are clear to auscultation bilaterally. He has palpable radial pulses bilaterally. The abdomen is flat. He has a midline scar consistent with his prior surgery. He also has a scar in the right upper quadrant apparently consistent with his ileostomy site. Does have some bowel sounds present though they are faint. There is no evidence of abdominal wall hernia. There is no tympany to percussion. He has no significant tenderness to percussion either. On palpation, the abdomen is perhaps mildly full, but without a palpable mass. The abdomen is soft with only some very mild fairly diffuse midabdominal tenderness. There is no rebound or guarding. Extremities are without edema and he has palpable pedal pulses bilaterally. LABORATORY STUDIES: On the evening of the , showed a white count of 8,000, hemoglobin 15, hematocrit 46 and a platelet count of 214,000. Differential count showed 70% neutrophils, 21% lymphocytes and 7% monocytes. Coagulation profile was normal. Chemistry showed normal electrolytes. BUN of 20, creatinine 1.2 and a glucose of 108. Total and direct bilirubin, AST, ALT and alkaline phosphatase were all normal. Cardiac injury profile was normal and a lipase was normal at 83. COVID serology is negative. IMAGING: Included a chest x-ray that revealed some limitation of inflation of the lungs with no evident infiltrates or effusions. A CT scan of the abdomen and pelvis revealed a small-bowel obstruction, apparently located at the level of a small anastomosis low in the pelvis slight to the right of the midline. I also reviewed a CT scan from February of 2016 and the findings are remarkably similar. He has a staple line in the region of the rectosigmoid consistent with his prior sigmoid resection. There is a minimal amount of free fluid. The radiologist pointed out a nonobstructive left renal stone and some minimal diverticulosis without diverticulitis. The artificial urethral sphincter is noted on the lower cuts of the scan. IMPRESSION: 1. Small bowel obstruction. 2. Atherosclerotic coronary artery disease status post stenting approximately 15 years ago, currently asymptomatic. 3. Past history of atrial fibrillation, status post ablation. 4. History of prostate cancer, status post prostatectomy and subsequent radiation therapy. 5. History of previous bleeding ulcers. PLAN: The patient's symptoms appear to have improved to some degree while he has been in the emergency department. His pain is less, though he has received some morphine in the emergency department. The patient had two episodes of a bowel obstruction approximately 5 years ago in November and February of 2016. His imaging today is remarkably similar to the CT scan from February of 2016, which showed an apparent blockage at the level of his small bowel anastomosis down in the pelvis. The anastomosis is identified by an apparent staple line. 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 He has on both prior occasions, five years ago, resolved this generally within the first 24 hours or so. I think it is quite likely that this will resolve again without the need for any further intervention. I have recommended that he be placed on observation. He will be kept nothing by mouth (n.p.o.) with IV hydration. His symptoms will be monitored and his physical examination will be repeated serially. If his symptoms resolve, then we will start him on some clear liquids in the morning and advance his diet as tolerated. The patient had an opportunity to ask questions and is agreeable with this plan.
== END 2021-01-17 11:40 | disposition home or self-care (01) ==
LOC: M ED 20:54 → M ED INP 20:55 → M MS5PR 01-17 02:14
PROVIDERS: ADMIT Surgery; ATTEND Surgery
DX: K56.699 Other intestinal obstruction unspecified as to partial versus complete obstruction (principal); E78.00 Pure hypercholesterolemia, unspecified; I25.10 Atherosclerotic heart disease of native coronary artery without angina pectoris; Z98.61 Coronary angioplasty status; Z87.891 Personal history of nicotine dependence; I10 Essential (primary) hypertension; Z85.46 Personal history of malignant neoplasm of prostate; Z92.3 Personal history of irradiation; Z79.02 Long term (current) use of antithrombotics/antiplatelets; Z79.899 Other long term (current) drug therapy
CPT/HCPCS: 71045; 74176; 80048; 80076; 82550; 82553; 83690; 84484; 85025; 85610; 85730; 87631; 93005; 93041; 94760; 96361; 96374; 96375; 99285; G0378; J2270; J2405

== ENCOUNTER → 2021-02-12 | Outpatient (REF) | payer MEDICARE ==
[~2021-02-12] MED LIST changes: +LISI10TA22 PO; +MELA3TAB7 PO
[2021-02-12 13:59] LABS: HEMATOCRIT 44.5 % (42.0-52.0); HEMOGLOBIN 14.1 g/dl (13.5-17.5); MEAN CORPUSCULAR HEMOGLOBIN 29.1 pg (27.0-33.0); MEAN CORPUSCULAR HGB CONC 31.7 g/dl (32.0-36.5); MEAN CORPUSCULAR VOLUME 91.8 fl (80.0-96.0); PLATELET COUNT, AUTOMATED 185 10^3/uL (150-450); RED BLOOD COUNT 4.85 10^6/uL (4.30-6.10); WHITE BLOOD COUNT 3.9 10^3/uL (4.0-10.0)
[2021-02-12 15:31] LABS: ALBUMIN 3.6 GM/DL (3.2-5.2); ALT/SGPT 25 U/L (12-78); BILIRUBIN,TOTAL 0.5 MG/DL (0.2-1.0); BLOOD UREA NITROGEN 18 MG/DL (7-18); CALCIUM LEVEL 8.5 MG/DL (8.8-10.2); CARBON DIOXIDE LEVEL 28 MEQ/L (21-32); CHLORIDE LEVEL 109 MEQ/L (98-107); CHOLESTEROL LEVEL 125 MG/DL (<200); CHOLESTEROL RISK RATIO 3.571 (<5); CREATININE FOR GFR 1.07 MG/DL (0.70-1.30); FERRITIN 43 NG/ML (26-388); GLOMERULAR FILTRATION RATE > 60.0 (>42); GLUCOSE, FASTING 96 MG/DL (70-100); HDL CHOLESTEROL 35 MG/DL (>40); IRON (FE) 48 UG/DL (65-175); LDL CHOLESTEROL 79 MG/DL (<100); NON-HDL-C 90 MG/DL; PERCENT SATURATION 17.4 % (19.7-50.0); POTASSIUM SERUM 4.4 MEQ/L (3.5-5.1); SODIUM LEVEL 143 MEQ/L (136-145); TOTAL IRON BINDING CAPACITY 276 UG/DL (250-450); TOTAL PROTEIN 6.8 GM/DL (6.4-8.2); TRIGLYCERIDES LEVEL 57 MG/DL (<150)
[2021-02-12 17:23] LABS: HEMOGLOBIN A1c 5.7 %
== END ==
LOC: M SFHCADAM 08:07
PROVIDERS: ATTEND Family Medicine
DX: I25.10 Atherosclerotic heart disease of native coronary artery without angina pectoris (principal); Z86.2 Personal history of diseases of the blood and blood-forming organs and certain disorders involving the immune mechanism; E74.9 Disorder of carbohydrate metabolism, unspecified

== ENCOUNTER → 2021-03-22 | Outpatient (CLI) | payer MEDICARE | LOC: M LABSMTC 09:11 | PROVIDERS: ATTEND Anesthesiology | DX: Z01.812 Encounter for preprocedural laboratory examination (principal) ==

== ENCOUNTER 2021-03-27 11:32 | Day surgery (SDC) | payer MEDICARE ==
[~2021-03-27] VITALS: Ht 177.8 cm; Wt 85.3 kg
[~2021-03-27 11:32] MED LIST changes: +NS 1,000 ML IV ONE; +fentaNYL 100 MCG/2 ML INJECTION (J3010) As Ordered ONE; +propofoL 500 MG/50 ML VIAL As Ordered ONE
[2021-03-27] MEDS ORDERED: ePHEDrine SULFATE 25 MG/5 ML(5MG/ML) SYRINGE As Ordered ONE (13:56)
[2021-03-27] MEDS ORDERED: LIDOCAINE 2% 100MG/5ML SDV (FOR ANES.) As Ordered ONE ×2 (13:56→15:39)
--- NOTE | 2021-03-27 13:57 | ROOR ---
Patient Name: Benny De Leon Procedure Date: 03/27/2021 10:26 AM Date of : 1945 Age: 75 Room: [facility] Gender: Male Note Status: Finalized Procedure: Upper Endoscopy + Biopsies Indications: Heartburn, Follow-up of Alvares's esophagus Providers: Mitchel Celaya MD Referring MD: Ron Oconnor MD Requesting Provider: Medicines: Monitored Anesthesia Care Complications: No immediate complications. Procedure: Pre-Anesthesia Assessment: - The heart rate, respiratory rate, oxygen saturations, blood pressure, adequacy of pulmonary ventilation, and response to care were monitored throughout the procedure. The Endoscope was introduced through the mouth, and advanced to the second part of duodenum. The upper GI endoscopy was accomplished without difficulty. The patient tolerated the procedure well. Findings: The Z-line was irregular and was found 35 cm from the incisors. Multiple biopsies were obtained with cold forceps for evaluation to rule out Alvares's Esophagus randomly at the gastroesophageal junction. A small hiatal hernia was present. Localized mild inflammation characterized by congestion (edema) and erosions was found in the gastric antrum. Biopsies were taken with a cold forceps for Helicobacter pylori testing. The exam of the duodenum was otherwise normal. Impression: - Z-line irregular, 35 cm from the incisors. - Small hiatal hernia. - Mucosal changes suspicious for gastritis. Biopsied. - Multiple biopsies were obtained at the gastroesophageal junction. - The examination was otherwise normal. Recommendation: - Patient has a contact number available for emergencies. The signs and symptoms of potential delayed complications were discussed with the patient. Return to normal activities tomorrow. Written discharge instructions were provided to the patient. - High fiber diet. - Discharge patient to home. - Continue present medications. - Await pathology results. - Telephone GI clinic for pathology results in 1 week. - The findings and recommendations were discussed with the patient. Procedure Code(s): --- Professional --- 27883, Esophagogastroduodenoscopy, flexible, transoral; with biopsy, single or multiple Diagnosis Code(s): --- Professional --- K22.8, Other specified diseases of esophagus K44.9, Diaphragmatic hernia without obstruction or gangrene K31.89, Other diseases of stomach and duodenum K22.70, Alvares's esophagus without dysplasia R12, Heartburn CPT copyright 2019 [employer]. All rights reserved. The codes documented in this report are preliminary and upon school leader review may be revised to meet current compliance requirements. Mitchel Celaya MD Mitchel Celaya MD 03/27/2021 1:57:48 PM Electronically signed by Mitchel Celaya MD Number of Addenda: 0 Note Initiated On: 03/27/2021 10:26 AM Estimated Blood Loss: Estimated blood loss: none.
--- NOTE | 2021-03-27 14:21 | ROOR ---
Patient Name: Benny De Leon Procedure Date: 03/27/2021 1:40 PM Date of : 1945 Age: 75 Room: [facility] Gender: Male Note Status: Finalized Procedure: Total Colonoscopy to Cecum + Cold Snare Polypectomy + Hemoclips Indications: High risk colon cancer surveillance: Personal history of colonic polyps Providers: Mitchel Celaya MD Referring MD: Ron Oconnor MD Requesting Provider: Medicines: Monitored Anesthesia Care Complications: No immediate complications. Procedure: Pre-Anesthesia Assessment: - The heart rate, respiratory rate, oxygen saturations, blood pressure, adequacy of pulmonary ventilation, and response to care were monitored throughout the procedure. The Colonoscope was introduced through the anus and advanced to the cecum, identified by appendiceal orifice and ileocecal valve. The colonoscopy was performed without difficulty. The patient tolerated the procedure well. The quality of the bowel preparation was excellent. Findings: The perianal and digital rectal examinations were normal. Non-bleeding internal hemorrhoids were found during retroflexion. The hemorrhoids were small and Grade I (internal hemorrhoids that do not prolapse). There was evidence of a prior end-to-end colo-colonic anastomosis at 20 cm proximal to the anus. This was patent and was characterized by healthy appearing mucosa. The anastomosis was traversed. A small polyp was found in the cecum. The polyp was sessile. The polyp was removed with a cold snare. Resection and retrieval were complete. To prevent bleeding after the polypectomy, two hemostatic clips were successfully placed. There was no bleeding at the end of the procedure. The exam was otherwise without abnormality on direct and retroflexion views. Impression: - Non-bleeding internal hemorrhoids. - Patent end-to-end colo-colonic anastomosis, characterized by healthy appearing mucosa. - One small polyp in the cecum, removed with a cold snare. Resected and retrieved. Clips were placed. - The examination was otherwise normal on direct and retroflexion views. - The exam was otherwise normal to the cecum. Recommendation: - Patient has a contact number available for emergencies. The signs and symptoms of potential delayed complications were discussed with the patient. Return to normal activities tomorrow. Written discharge instructions were provided to the patient. - High fiber diet. - Discharge patient to home. - Continue present medications. - Await pathology results. - Telephone GI clinic for pathology results in 1 week. - Repeat colonoscopy for surveillance based on pathology results. - Return to referring physician. - The findings and recommendations were discussed with the patient. Procedure Code(s): --- Professional --- 98024, Colonoscopy, flexible; with removal of tumor(s), polyp(s), or other lesion(s) by snare technique Diagnosis Code(s): --- Professional --- Z86.010, Personal history of colonic polyps K64.0, First degree hemorrhoids Z98.0, Intestinal bypass and anastomosis status K63.5, Polyp of colon CPT copyright 2019 [employer]. All rights reserved. The codes documented in this report are preliminary and upon drag out worker review may be revised to meet current compliance requirements. Mitchel Celaya MD Mitchel Celaya MD 03/27/2021 2:21:41 PM Electronically signed by Mitchel Celaya MD Number of Addenda: 0 Note Initiated On: 03/27/2021 1:40 PM Estimated Blood Loss: Estimated blood loss: none.
[2021-03-27 14:53] VITALS: BP 125/83
[2021-03-27] MEDS ORDERED: fentaNYL 250 MCG/5 ML INJECTION (J3010) As Ordered ONE (15:39)
[2021-03-27] MEDS ORDERED: MIDAZOLAM INJ 2MG/2ML VIAL (J2250 PER 1MG) As Ordered ONE (15:39)
[2021-03-27] MEDS ORDERED: propofoL 200 MG/20 ML VIAL As Ordered ONE (15:39)
[2021-03-27] MEDS ORDERED: ROCURONIUM BROMIDE 50 MG/5 ML VIAL As Ordered ONE (16:18)
== END 2021-03-27 14:55 | disposition home or self-care (01) ==
LOC: M OPP 11:32
PROVIDERS: ATTEND Internal Medicine Gastroenterology
DX: Z12.11 Encounter for screening for malignant neoplasm of colon (principal); Z86.010 Personal history of colon polyps; D12.0 Benign neoplasm of cecum; K64.0 First degree hemorrhoids; K22.8 Other specified diseases of esophagus; K44.9 Diaphragmatic hernia without obstruction or gangrene; K31.89 Other diseases of stomach and duodenum; K22.70 Barrett's esophagus without dysplasia; R12 Heartburn; Z79.899 Other long term (current) drug therapy; Z87.891 Personal history of nicotine dependence; Z95.5 Presence of coronary angioplasty implant and graft; Z88.5 Allergy status to narcotic agent
CPT/HCPCS: 43239; 45385; 88305; J3010

== ENCOUNTER → 2021-08-08 | Outpatient (CLI) | payer MEDICARE ==
[~2021-08-08] MED LIST changes: -NS 1,000 ML IV ONE; -fentaNYL 100 MCG/2 ML INJECTION (J3010) As Ordered ONE; -propofoL 500 MG/50 ML VIAL As Ordered ONE
== END ==
LOC: M ADAMS 15:22
PROVIDERS: ATTEND Family Medicine
DX: R05.8 Other specified cough (principal); T46.4X5A Adverse effect of angiotensin-converting-enzyme inhibitors, initial encounter

== ENCOUNTER → 2022-04-02 | Outpatient (CLI) | payer MEDICARE ==
[~2022-04-02] MED LIST changes: +SIMV-252 PO
[2022-04-02 10:37] LABS: HEMATOCRIT 44.9 % (42.0-52.0); HEMOGLOBIN 14.2 g/dl (13.5-17.5); MEAN CORPUSCULAR HEMOGLOBIN 28.7 pg (27.0-33.0); MEAN CORPUSCULAR HGB CONC 31.6 g/dl (32.0-36.5); MEAN CORPUSCULAR VOLUME 90.7 fl (80.0-96.0); PLATELET COUNT, AUTOMATED 193 10^3/uL (150-450); RED BLOOD COUNT 4.95 10^6/uL (4.30-6.10); WHITE BLOOD COUNT 4.5 10^3/uL (4.0-10.0)
[2022-04-02 11:01] LABS: HEMOGLOBIN A1c 5.9 %
[2022-04-02 11:18] LABS: ALBUMIN 3.6 GM/DL (3.2-5.2); ALT/SGPT 22 U/L (12-78); BILIRUBIN,TOTAL 0.6 MG/DL (0.2-1.0); BLOOD UREA NITROGEN 19 MG/DL (7-18); CARBON DIOXIDE LEVEL 28 MEQ/L (21-32); CHLORIDE LEVEL 107 MEQ/L (98-107); CHOLESTEROL LEVEL 135 MG/DL (<200); CREATININE FOR GFR 1.08 MG/DL (0.70-1.30); FERRITIN 39 NG/ML (26-388); GLOMERULAR FILTRATION RATE > 60.0 (>42); GLUCOSE, FASTING 93 MG/DL (70-100); HDL CHOLESTEROL 33 MG/DL (>40); IRON (FE) 117 UG/DL (65-175); LDL CHOLESTEROL 82 MG/DL (<100); NON-HDL-C 102 MG/DL; PERCENT SATURATION 40.2 % (19.7-50.0); POTASSIUM SERUM 4.2 MEQ/L (3.5-5.1); SODIUM LEVEL 138 MEQ/L (136-145); TOTAL IRON BINDING CAPACITY 291 UG/DL (250-450); TOTAL PROTEIN 6.9 GM/DL (6.4-8.2); TRIGLYCERIDES LEVEL 98 MG/DL (<150)
== END ==
LOC: M PLALAB 08:48
PROVIDERS: ATTEND Family Medicine
DX: K22.70 Barrett's esophagus without dysplasia (principal); Z86.2 Personal history of diseases of the blood and blood-forming organs and certain disorders involving the immune mechanism; E74.9 Disorder of carbohydrate metabolism, unspecified; I25.10 Atherosclerotic heart disease of native coronary artery without angina pectoris

== ENCOUNTER → 2022-04-09 | Outpatient (CLI) | payer MEDICARE ==
[2022-04-09 14:36] LABS: FREE T4 0.91 NG/DL (0.76-1.46)
[2022-04-09 14:37] LABS: C REACTIVE PROTEIN QUANTITATIV < 0.30 MG/DL (0.00-0.30)
[2022-04-09 22:52] LABS: VITAMIN B12 LEVEL 312 PG/ML (247-911)
[2022-04-11 08:09] LABS: FOLATE 3.3 ng/mL (>3.0)
== END ==
LOC: M PLALAB 09:09
PROVIDERS: ATTEND Family Medicine
DX: R53.83 Other fatigue (principal)

== ENCOUNTER → 2022-11-21 | Outpatient (CLI) | payer MEDICARE ==
[~2022-11-21] MED LIST changes: +CLOP75TA99 PO; -PLAV1TAB2 PO
== END ==
LOC: M ADAMS 09:45
PROVIDERS: ATTEND Family Medicine
DX: R05.1 Acute cough (principal)

== ENCOUNTER → 2023-03-10 | Outpatient (CLI) | payer MEDICARE ==
[2023-03-10 10:40] LABS: HEMATOCRIT 43.9 % (42.0-52.0); MEAN CORPUSCULAR HEMOGLOBIN 28.7 pg (27.0-33.0); MEAN CORPUSCULAR HGB CONC 31.9 g/dl (32.0-36.5); MEAN CORPUSCULAR VOLUME 90.1 fl (80.0-96.0); PLATELET COUNT, AUTOMATED 179 10^3/uL (150-450); RED BLOOD COUNT 4.87 10^6/uL (4.30-6.10); WHITE BLOOD COUNT 3.7 10^3/uL (4.0-10.0)
[2023-03-10 11:14] LABS: IRON (FE) 64 UG/DL (65-175); PERCENT SATURATION 20.6 % (19.7-50.0); TOTAL IRON BINDING CAPACITY 311 UG/DL (250-425)
[2023-03-10 11:17] LABS: ALBUMIN 3.6 G/DL (3.2-5.2); ALKALINE PHOSPHATASE 93 U/L (46-116); ALT/SGPT 17 U/L (7.0-40); AST/SGOT 16 U/L (<34); BILIRUBIN,TOTAL 0.6 MG/DL (0.3-1.2); BLOOD UREA NITROGEN 15 MG/DL (9-23); CALCIUM LEVEL 8.5 MG/DL (8.3-10.6); CARBON DIOXIDE LEVEL 27 MMOL/L (20-31); CHLORIDE LEVEL 109 MMOL/L (98-107); CHOLESTEROL LEVEL 100 MG/DL (<200); CHOLESTEROL RISK RATIO 3.75 (<5); CREATININE FOR GFR 1.01 MG/DL (0.70-1.30); FERRITIN 32.1 NG/ML (10.5-307.3); FREE T4 0.85 NG/DL (0.89-1.76); GLOMERULAR FILTRATION RATE > 60.0 (>42); GLUCOSE, FASTING 91 MG/DL (74-106); HDL CHOLESTEROL 26.6 MG/DL (>40); NON-HDL-C 73.4 MG/DL; POTASSIUM SERUM 3.9 MMOL/L (3.5-5.1); PROSTATIC SPECIFIC AG MONITOR 0.04 NG/ML (< 4.00); SODIUM LEVEL 141 MMOL/L (136-145); THYROID STIMULATING HORMONE 1.731 uIU/ML (0.55-4.78); TOTAL PROTEIN 6.7 G/DL (5.7-8.2); TRIGLYCERIDES LEVEL 72 MG/DL (<150)
[2023-03-10 11:30] LABS: HEMOGLOBIN A1c 5.5 % (4.0-6.0)
== END ==
LOC: M PLALAB 08:10
PROVIDERS: ATTEND Family Medicine
DX: K22.70 Barrett's esophagus without dysplasia (principal); E78.2 Mixed hyperlipidemia; I25.10 Atherosclerotic heart disease of native coronary artery without angina pectoris; Z86.2 Personal history of diseases of the blood and blood-forming organs and certain disorders involving the immune mechanism; C61 Malignant neoplasm of prostate; Z13.1 Encounter for screening for diabetes mellitus

== ENCOUNTER → 2024-03-02 | Outpatient (REF) | payer MEDICARE ==
[2024-03-02 12:58] LABS: HEMATOCRIT 43.2 % (42.0-52.0); HEMOGLOBIN 13.9 g/dl (13.5-17.5); MEAN CORPUSCULAR HEMOGLOBIN 29.3 pg (27.0-33.0); MEAN CORPUSCULAR HGB CONC 32.2 g/dl (32.0-36.5); MEAN CORPUSCULAR VOLUME 91.1 fl (80.0-96.0); PLATELET COUNT, AUTOMATED 179 10^3/uL (150-450); RED BLOOD COUNT 4.74 10^6/uL (4.30-6.10); WHITE BLOOD COUNT 4.2 10^3/uL (4.0-10.0)
[2024-03-02 13:02] LABS: TOTAL IRON BINDING CAPACITY 295 UG/DL (250-425)
[2024-03-02 13:03] LABS: IRON (FE) 51 UG/DL (65-175); PERCENT SATURATION 17.3 % (19.7-50.0)
[2024-03-02 13:04] LABS: ALBUMIN 3.6 G/DL (3.2-5.2); ALKALINE PHOSPHATASE 102 U/L (46-116); ALT/SGPT 24 U/L (7.0-40); AST/SGOT 20 U/L (<34); BILIRUBIN,TOTAL 0.4 MG/DL (0.3-1.2); BLOOD UREA NITROGEN 22 MG/DL (9-23); CALCIUM LEVEL 8.6 MG/DL (8.3-10.6); CARBON DIOXIDE LEVEL 27 MMOL/L (20-31); CHLORIDE LEVEL 108 MMOL/L (98-107); CHOLESTEROL LEVEL 117 MG/DL (<200); CHOLESTEROL RISK RATIO 4.09 (<5); FERRITIN 25.1 NG/ML (10.5-307.3); GLOMERULAR FILTRATION RATE > 60.0 (>42); GLUCOSE, FASTING 108 MG/DL (74-106); HDL CHOLESTEROL 28.6 MG/DL (>40); LDL CHOLESTEROL 69.6 MG/DL (<100); NON-HDL-C 88.4 MG/DL; POTASSIUM SERUM 4.1 MMOL/L (3.5-5.1); PROSTATIC SPECIFIC AG MONITOR 0.04 NG/ML (< 4.00); SODIUM LEVEL 141 MMOL/L (136-145); TOTAL PROTEIN 6.7 G/DL (5.7-8.2); TRIGLYCERIDES LEVEL 94 MG/DL (<150)
[2024-03-02 13:14] LABS: HEMOGLOBIN A1c 5.7 % (4.0-6.0)
== END ==
LOC: M SFHCADAM 09:00
PROVIDERS: ATTEND Family Medicine
DX: I25.10 Atherosclerotic heart disease of native coronary artery without angina pectoris (principal); K22.70 Barrett's esophagus without dysplasia; E74.9 Disorder of carbohydrate metabolism, unspecified; Z86.2 Personal history of diseases of the blood and blood-forming organs and certain disorders involving the immune mechanism; C61 Malignant neoplasm of prostate

== ENCOUNTER → 2024-03-07 | Outpatient (CLI) | payer MEDICARE | LOC: M ADAMS 13:59 | PROVIDERS: ATTEND Family Medicine | DX: R05.3 Chronic cough (principal) ==

== ENCOUNTER → 2024-03-09 | Outpatient (CLI) | payer MEDICARE ==
[2024-03-11 23:07] LABS: BORDETELLA PERTUSSIS ABY IgA 1.2 index (0.0-0.9); BORDETELLA PERTUSSIS ABY IgG 1.84 index (0.00-0.94); BORDETELLA PERTUSSIS ABY IgM <1.0 index (0.0-0.9); L. PNEUMOPHILA (1,3,4,5,6,8) Reactive (Non Reactive)
== END ==
LOC: M PLALAB 13:10
PROVIDERS: ATTEND Family Medicine
DX: R05.3 Chronic cough (principal); Z11.3 Encounter for screening for infections with a predominantly sexual mode of transmission; Z72.89 Other problems related to lifestyle

== ENCOUNTER → 2024-03-15 | Outpatient (REF) | payer MEDICARE | LOC: M SFHCADAM 17:46 | PROVIDERS: ATTEND Family Medicine | DX: A48.1 Legionnaires' disease (principal) ==

== ENCOUNTER → 2024-07-01 | Outpatient (REF) | payer MEDICARE ==
[2024-07-01 14:32] LABS: ALBUMIN 3.4 G/DL (3.2-5.2); BILIRUBIN,DIRECT 0.2 MG/DL (<0.4); BILIRUBIN,TOTAL 0.4 MG/DL (0.3-1.2); CHOLESTEROL RISK RATIO 3.83 (<5); HDL CHOLESTEROL 30.5 MG/DL (>40); LDL CHOLESTEROL 72.3 MG/DL (<100); NON-HDL-C 86.5 MG/DL; TOTAL PROTEIN 6.6 G/DL (5.7-8.2)
== END ==
LOC: M LABDRWAD 12:41
PROVIDERS: ATTEND Internal Medicine
DX: E78.00 Pure hypercholesterolemia, unspecified (principal)

== ENCOUNTER → 2025-02-17 | Outpatient (REF) | payer MEDICARE ==
[~2025-02-17] MED LIST changes: -MELA3TAB7 PO; +MELA3TAB78 PO
[2025-02-17 14:13] LABS: PLATELET COUNT, AUTOMATED 172 10^3/uL (150-450)
[2025-02-17 14:37] LABS: ALT/SGPT 18.0 U/L (7.0-40); AST/SGOT 25.0 U/L (<34); CALCIUM LEVEL 8.6 MG/DL (8.3-10.6); CARBON DIOXIDE LEVEL 26.0 MMOL/L (20-31); CHLORIDE LEVEL 108.0 MMOL/L (98-107); CHOLESTEROL LEVEL 72.0 MG/DL (<200); CHOLESTEROL RISK RATIO 2.56 (<5); CREATININE FOR GFR 1.01 MG/DL (0.70-1.30); GLOMERULAR FILTRATION RATE 76.1 (>42); LDL CHOLESTEROL 31.3 MG/DL (<100); MAGNESIUM LEVEL 2.0 MG/DL (1.8-2.4); NON-HDL-C 43.9 MG/DL; POTASSIUM SERUM 4.1 MMOL/L (3.5-5.1); SODIUM LEVEL 145.0 MMOL/L (136-145); TRIGLYCERIDES LEVEL 63.0 MG/DL (<150)
[2025-02-17 14:39] LABS: PROSTATIC SPECIFIC AG MONITOR 0.04 NG/ML (< 4.00)
[2025-02-17 14:46] LABS: FREE T4 0.88 NG/DL (0.89-1.76)
[2025-02-17 15:17] LABS: ESTIMATED AVERAGE GLUCOSE 120.0 MG/DL (60-110)
== END ==
LOC: M SFHCADAM 09:08
PROVIDERS: ATTEND Family Medicine
DX: I48.0 Paroxysmal atrial fibrillation (principal); E78.2 Mixed hyperlipidemia; C61 Malignant neoplasm of prostate; Z86.2 Personal history of diseases of the blood and blood-forming organs and certain disorders involving the immune mechanism; E74.9 Disorder of carbohydrate metabolism, unspecified; K22.70 Barrett's esophagus without dysplasia

== ENCOUNTER → 2025-06-30 | Outpatient (REF) | payer MEDICARE ==
[~2025-06-30] MED LIST changes: -ZOLP5TAB PO; +ZOLP5TAB9 PO
[2025-06-30 13:51] LABS: FREE T4 1.11 NG/DL (0.89-1.76)
[2025-06-30 13:53] LABS: PLATELET COUNT, AUTOMATED 195 10^3/uL (150-450)
[2025-06-30 13:58] LABS: ALT/SGPT 21.0 U/L (7.0-40); AST/SGOT 28.0 U/L (<34); CALCIUM LEVEL 8.7 MG/DL (8.3-10.6); CARBON DIOXIDE LEVEL 28.0 MMOL/L (20-31); CHLORIDE LEVEL 107.0 MMOL/L (98-107); CHOLESTEROL LEVEL 78.0 MG/DL (<200); CHOLESTEROL RISK RATIO 2.68 (<5); CREATININE FOR GFR 1.03 MG/DL (0.70-1.30); GLOMERULAR FILTRATION RATE 74.4 (>42); LDL CHOLESTEROL 38.1 MG/DL (<100); NON-HDL-C 48.9 MG/DL; POTASSIUM SERUM 4.0 MMOL/L (3.5-5.1); SODIUM LEVEL 143.0 MMOL/L (136-145); TRIGLYCERIDES LEVEL 54.0 MG/DL (<150)
[2025-06-30 15:16] LABS: ESTIMATED AVERAGE GLUCOSE 114.0 MG/DL (60-110)
== END ==
LOC: M SFHCADAM 09:16
PROVIDERS: ATTEND Family Medicine
DX: E78.2 Mixed hyperlipidemia (principal); I48.0 Paroxysmal atrial fibrillation; D64.9 Anemia, unspecified; E74.9 Disorder of carbohydrate metabolism, unspecified; K22.70 Barrett's esophagus without dysplasia; Y93.53 Activity, golf; Z79.899 Other long term (current) drug therapy